=== PATIENT | male | born 1950 | race Caucasian/White ===

== ENCOUNTER 2016-10-31 15:20 | Outpatient (CLI) | payer OTHER, MEDICARE | END 2016-10-31 15:21 | disposition home or self-care (01) | DX: I10 Essential (primary) hypertension (principal) ==

== ENCOUNTER 2016-11-01 12:04 | Outpatient (CLI) | payer OTHER, MEDICARE | END 2016-11-01 23:59 | DX: I10 Essential (primary) hypertension (principal) ==

== ENCOUNTER 2016-12-17 14:28 | Emergency (ER) | payer OTHER, MEDICARE ==
[2016-12-17 14:34] VITALS: BP 142/89
--- NOTE | 2016-12-17 14:34 | ED Physician Documentation ---
PD HPI OPHTHO - Stated complaint Stated Complaint: L EYE SWELLING/PX - History obtained from History obtained from: Patient - History of Present Illness Timing - onset: Yesterday Timing - duration: Days (1 1/2 days) Timing - details: Abrupt onset Location: Left (eyebrow) Quality / character: Aching, Throbbing Associated symptoms: Redness (he had small pimple looking lesion left eyebrow yesterday that he pinched and got some purulent material out. It is tender and red. Today awoke to note redness of left upper eyelid, with swelling, still with some draining of the pustule, and local tenderness increased. No feeling of eye pressure, visual change, nor pain with eye movement. No fevers, no headache, no sinus pressure.), Swelling, Discharge. No: Double vision, Decreased vision, Loss of vision, Headache Contributing factors: No: FB Similar symptoms before: Has not had sx before Recently seen: Not recently seen Review of Systems Constitutional: denies: Fever, Chills Eyes: denies: Loss of vision, Decreased vision, Photophobia GI: denies: Nausea, Vomiting, Diarrhea Neurologic: denies: Headache PD PAST MEDICAL HISTORY - Past Medical History Cardiovascular: Hypertension Endocrine/Autoimmune: HyPOthyroidism - Past Surgical History General: Cholecystectomy Ortho: Knee replacement, Rotator cuff repair - Present Medications Home Medications: Ambulatory Orders Medication Instructions Recorded Confirmed Levothyroxine Sodium [Synthroid] 125 mcg ORAL DAILY 06/14/15 12/17/16 Metoprolol Tartrate 25 mg ORAL DAILY 06/14/15 12/17/16 Aspirin [Aspirin EC] 81 mg PO DAILY 12/17/16 12/17/16 Chlorhexidine Gluconate [Hibiclens] 10 ml TP DAILY #236 ml 12/17/16 Mupirocin 1 applic TP TID #15 oint...g. 12/17/16 Sulfamethox/Trimeth 800/160 1 each PO BID #14 tablet 12/17/16 [Bactrim Ds 800/160] - Allergies Allergies/Adverse Reactions: Allergies Allergy/AdvReac Type Severity Reaction Status Date / Time clindamycin Allergy Nausea Verified 12/17/16 14:34 erythromycin base AdvReac Unknown Verified 06/14/15 17:54 - Social History Does the pt smoke?: No Smoking Status: Never smoker Does the pt drink ETOH?: No Does the pt have substance abuse?: No - Immunizations Immunizations are current?: Yes PD ED PE NORMAL - Vitals Vital signs reviewed: Yes - General General: Alert and oriented X 3, No acute distress, Well developed/nourished - HEENT HEENT: PERRL, EOMI (no pain nor diplopia with eye movement. ) - Neck Neck: Supple, no meningeal sign, No adenopathy - Derm Derm: Warm and dry, Other (left eyebrow with focal induration, swelling and tenderness with weeping small pustule. No fluctuance and the lesion is less than a cm, so does not seem to need I&D. The upper eyelid and lateral periorbital area with redness and swelling of skin c/w cellulitis. 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 I think he should not be in that sterile environment with weeping lesion and told him this. He is understanding of concern and will contact his Anesth director for help with coverage. Appears likely staph infection and will treat as such. No signs of orbital involvement. ), d/w patient Departure - Departure Disposition: 01 Home, Self Care Clinical Impression: Abscess of eyebrow Cellulitis of eyelid Qualifiers: Laterality: left Qualified Code(s): H00.036 - Abscess of eyelid left eye, unspecified eyelid Condition: Stable Record reviewed to determine appropriate education?: Yes Instructions: ED Staph Infec Abx Tx Only Follow-Up: Edwin Anthony MD [Primary Care Provider] - Prescriptions: Sulfamethox/Trimeth 800/160 [Bactrim Ds 800/160] 1 each PO BID #14 tablet Chlorhexidine Gluconate [Hibiclens] 10 ml TP DAILY #236 ml Mupirocin 1 applic TP TID #15 oint...g. Comments: Warm moist compresses several times daily to the area to improve blood flow and promote drainage. Bactrim twice daily for infection. Mupirocin ointment 3-4 times daily to the area. Hibiclens body wash daily with showers for a week. Tylenol or Ibuprofen as needed for pains. Recheck if not improved over the next few days. Return if feeling of pressure behind/around the eye, pain with eye movement, persistent blurred vision, general headache, etc. Regarding work and concerns for infection control, you should probably not be in the OR with draining infection, likely staph. You should not be in the OR until this is better, not draining, cleared up. Whether you need to be cleared by Infection Control or not, hard to say. I would talk with director pharmacy services or your Anesth group tomorrow about it. Discharge Date/Time: 12/17/16 15:12
[2016-12-17] MEDS ORDERED: IBUPROFEN 600 MG TABLET PO STA (14:48)
[2016-12-17] MEDS ORDERED: SULFAMETH/TRIMETH DS 800/160 MG TABLET PO STA (14:48)
[2016-12-17] MEDS ORDERED: MUPIROCIN 2% OINT 1 GM TOP STA (14:48)
[2016-12-17] MEDS ORDERED: IBUPROFEN 600 MG TABLET PO ONE (14:51)
[2016-12-17] MEDS ORDERED: SULFAMETH/TRIMETH DS 800/160 MG TABLET PO ONE (14:53)
[2016-12-17] MEDS ORDERED: MUPIROCIN 2% OINT 1 GM ONE (14:54)
== END 2016-12-17 15:12 | disposition home or self-care (01) ==
LOC: ED 14:28
DX: L02.01 Cutaneous abscess of face (principal); H00.034 Abscess of left upper eyelid; I10 Essential (primary) hypertension; E03.9 Hypothyroidism, unspecified
CPT/HCPCS: 99283; A9270

== ENCOUNTER 2017-04-30 07:06 | Emergency (ER) | payer OTHER, MEDICARE ==
--- NOTE | 2017-04-30 08:37 | ED Physician Documentation ---
PD HPI Fall - Stated complaint Stated Complaint: LEG INJURY - Chief complaint Chief Complaint: Trauma Ext - History obtained from History obtained from: Patient, Family - History of Present Illness Mechanism of injury: Slipped Fall distance: Standing position Where injury occurred: Home Timing - onset: Today Injury(ies) location: Left Lower Extremity, Left Hand Quality of pain: Pain, Throbbing Associated symptoms: No: LOC, AMS, Amnesia Symptoms improve with: Rest Worsens with: Movement, Palpation Contributing factors: No: Anticoagulated Similar symptoms before: Has not had sx before Recently seen: Not recently seen - Additional information Additional information: 66-year-old male was on his way to work this morning when he walked out of his house slipped on his concrete porch and fell he had what he terms dislocation of his left knee and a bruise to the left lateral distal thigh. He injured his left thumb as well in the fall. He has significant pain over the area of the hematoma and the distal neurovascular appears intact. Review of Systems Constitutional: denies: Fever Eyes: denies: Decreased vision Ears: denies: Ear pain Nose: denies: Congestion Respiratory: denies: Cough GI: denies: Abdominal Pain, Nausea, Vomiting, Constipation, Diarrhea : denies: Dysuria Skin: denies: Rash Musculoskeletal: reports: Extremity pain, Joint pain, Extremity swelling, Joint swelling, Pain with weight bearing. denies: Neck pain, Back pain PD PAST MEDICAL HISTORY - Past Medical History Cardiovascular: Hypertension Endocrine/Autoimmune: HyPOthyroidism - Past Surgical History General: Cholecystectomy Ortho: Knee replacement, Rotator cuff repair - Present Medications Home Medications: Ambulatory Orders Medication Instructions Recorded Confirmed Levothyroxine Sodium [Synthroid] 125 mcg ORAL DAILY 06/14/15 04/30/17 Aspirin [Aspirin EC] 81 mg PO DAILY 12/17/16 04/30/17 HYDROcod/ACETAM 5/325 [[place] 5/325] 1 - 2 ea PO Q6H PRN #15 tablet 04/30/17 Metoprolol Succinate [Metoprolol 50 mg PO DAILY 04/30/17 04/30/17 Succinate] - Allergies Allergies/Adverse Reactions: Allergies Allergy/AdvReac Type Severity Reaction Status Date / Time clindamycin Allergy Nausea Verified 12/17/16 14:34 erythromycin base AdvReac Unknown Verified 06/14/15 17:54 - Social History Does the pt smoke?: No Smoking Status: Never smoker Does the pt drink ETOH?: No Does the pt have substance abuse?: No - Immunizations Immunizations are current?: Yes PD ED PE NORMAL - Vitals Vital signs reviewed: Yes (hypertensive ) - General General: No acute distress, Well developed/nourished - HEENT HEENT: Atraumatic - Neck Neck: Supple, no meningeal sign - Respiratory Respiratory: No respiratory distress - Derm Derm: Normal color, Warm and dry, No rash - Extremities Extremities: No deformity, Other (There is a hematoma to the left distal thigh laterally and the area is area of maximal tenderness. There is tenderness along the lateral joint line and not the medial joint line. The medial joint opens to forces and the lateral joint does not. There is not pain associated with the joint opening. The anterior drawer is negative with a good strong endpoint to the ACL. There does not appear to be much joint effusion and the petella is without tenderness. There is tenderness over the DIP of the left thumb with distal n/v intact. ) - Neuro Neuro: No motor deficit, No sensory deficit, Normal speech - Psych Psych: Normal mood, Normal affect Results - Vitals Vitals: Vital Signs - 24 hr 04/30/17 04/30/17 07:27 09:40 Temperature 36.5 C Heart Rate 78 71 Respiratory 16 16 Rate Blood Pressure 152/87 H 144/82 H O2 Saturation 97 96 Oxygen O2 Source Room air - Rads (name of study) lft fingers Radiology: Prelim report reviewed (Impression: cortical irregularity involving the base of the fifth distal phalanx that may represent fracture or degenerative changes. Degenerative changes at the first carpometacarpal joint. Cortical irregularity involving the first metacarpal most likely represents postoperative changes.), EMP read indepedently, See rad report left knee Radiology: Prelim report reviewed (Impression mild osteoarthritis of the left knee without definite evidence of acute fracture or dislocation. If symptoms persist, a MRI may be beneficial.), EMP read indepedently, See rad report Procedures - Splint (location) knee Splint applied by: Tech Type of splint: Other (knee immobilizer) Other: Patient tolerated well, No complications, Neurovascular intact, Good alignment, Crutches provided Left thumb Splint applied by: Tech Type of splint: Fiberglass, Thumb spica Other: Patient tolerated well, No complications, Neurovascular intact, Good alignment PD MEDICAL DECISION MAKING - ED course Complexity details: reviewed results, re-evaluated patient, considered differential, d/w patient, d/w family ED course: 66 y/o male with a fall and sprain of the MCL on the left with a bruise to the lateral thigh. There is potential fracture of the thumb as well. He is placed into a thumb spica and a knee immobilizer. Departure - Departure Disposition: 01 Home, Self Care Clinical Impression: Sprain of MCL joint of knee Qualifiers: Encounter type: initial encounter Laterality: left Qualified Code(s): S83.412A - Sprain of medial collateral ligament of left knee, initial encounter Left thumb sprain Qualifiers: Encounter type: initial encounter Sprain of finger site: interphalangeal joint Qualified Code(s): S63.622A - Sprain of interphalangeal joint of left thumb, initial encounter Condition: Stable Instructions: ED Sprain Knee Collateral Ligaments, ED Dislocation Thumb Follow-Up: Edwin Anthony MD [Primary Care Provider] - Xiao Mann MD [Provider Admit Priv/Credential] - Prescriptions: HYDROcod/ACETAM 5/325 [[place] 5/325] 1 - 2 ea PO Q6H PRN #15 tablet PRN Reason: Pain Discharge Date/Time: 04/30/17 09:41
--- NOTE | 2017-04-30 08:45 | XRAY Preliminary Report ---
Exam: XR Knee 4 View LT Impression: Mild osteoarthritis of the left knee without definite evidence of an acute fracture or di slocation. If symptoms persist, a MRI may be beneficial. [facility] SITE ID: [id number]
--- NOTE | 2017-04-30 08:48 | XRAY Report ---
EXAM: LEFT KNEE RADIOGRAPHY EXAM DATE: 04/30/2017 08:16 AM. CLINICAL HISTORY: Dislocation lateral joint pain. . COMPARISON: None. TECHNIQUE: 4 views. FINDINGS: Osteophytes are noted within all 3 compartments of the knee consistent with mild osteoarthritis. Mild joint space narrowing of the medial compartment is noted. There is no evidence of any acute fracture or dislocation. Impression: Mild osteoarthritis of the left knee without definite evidence of an acute fracture or di slocation. If symptoms persist, a MRI may be beneficial. [facility] Referring Provider Line: [phone] SITE ID: [id number]
--- NOTE | 2017-04-30 08:50 | XRAY Preliminary Report ---
Exam: XR Finger(s) LT Impression: Cortical irregularity involving the base of the first distal phalanx that may represent a fracture or degenerative changes. Degenerative changes at the first carpometacarpal joint. Cortical irregularity involving the first metacarpal most likely represents postoperative changes. [facility] SITE ID: [id number]
--- NOTE | 2017-04-30 08:52 | XRAY Report ---
EXAM: LEFT FIRST DIGIT RADIOGRAPHY EXAM DATE: 04/30/2017 08:17 AM. CLINICAL HISTORY: Fall dip 1 pain . COMPARISON: None. TECHNIQUE: 3 views. FINDINGS: There is extensive cortical irregularity involving the proximal aspect of the distal phalanx. This ma y represent degenerative changes or a mildly displaced fracture. Cortical irregularity is noted invol ving the first metacarpal. This may represent degenerative changes or previous postoperative changes. Degenerative changes are noted at the first carpometacarpal joint. No radiopaque foreign body is chai ntified. Impression: Cortical irregularity involving the base of the first distal phalanx that may represent a fracture or degenerative changes. Degenerative changes at the first carpometacarpal joint. Cortical irregularity involving the first metacarpal most likely represents postoperative changes. [facility] Referring Provider Line: [phone] SITE ID: [id number]
[2017-04-30] MEDS ORDERED: KETOROLAC 60 MG/2 ML VIAL IM STA (09:26)
[2017-04-30] MEDS ORDERED: KETOROLAC 60 MG/2 ML VIAL ONE (09:38)
[2017-04-30 09:41] VITALS: BP 144/82
== END 2017-04-30 09:41 | disposition home or self-care (01) ==
LOC: ED 07:06
DX: S83.412A Sprain of medial collateral ligament of left knee, initial encounter (principal); S63.622A Sprain of interphalangeal joint of left thumb, initial encounter; S70.12XA Contusion of left thigh, initial encounter; W01.0XXA Fall on same level from slipping, tripping and stumbling without subsequent striking against object, initial encounter; I10 Essential (primary) hypertension; E03.9 Hypothyroidism, unspecified; Z79.82 Long term (current) use of aspirin; Z96.659 Presence of unspecified artificial knee joint
CPT/HCPCS: 29125; 29530; 73140; 96372; 99283

== ENCOUNTER 2017-05-18 08:45 | Outpatient (CLI) | payer OTHER, MEDICARE ==
--- NOTE | 2017-05-18 22:07 | MRI Report ---
EXAM: LEFT KNEE MRI WITHOUT CONTRAST EXAM DATE: 05/18/2017 10:02 AM. CLINICAL HISTORY: Pain, instability. Injury 2 weeks ago. COMPARISON: Radiographs 04/30/2017. TECHNIQUE: Multiplanar, multisequence T1-weighted and fluid-sensitive sequences of the knee without c ontrast. Other: None. FINDINGS: Cruciate Ligaments: The posterior cruciate ligament appears normal. There is some abnormal signal mor phology within the anterior cruciate ligament adjacent to the tibial attachment which may represent a partial tear. Remaining fibers appear intact. Correlate with exam. Medial Meniscus: Near full-thickness radial tear at the inner half of the posterior horn. Intrasubsta nce degeneration within the posterior body. Lateral Meniscus: Small amount of intrasubstance degeneration. Collateral ligaments: The medial and fibular collateral ligaments appear intact. Bones and Articular Surfaces: Mild cartilage thinning throughout the weightbearing medial compartment . No focal articular cartilage defects. Marrow signal appears within normal limits. Extensor Mechanism: The patellar tendon and quadriceps insertion appear intact. Some enthesophyte for mation at the quadriceps insertion. IMPRESSION: 1. Near full-thickness radial tear at the posterior horn medial meniscus. 2. Mild degenerative cartilage thinning in the weightbearing medial compartment. 3. Possible partial tear involving the lower fibers of the anterior cruciate ligament near the tibial attachment. Correlate with exam. [facility] MUSCULOSKELETAL RADIOLOGY SECTION Referring Provider Line: [phone] SITE ID: [id number]
== END 2017-05-18 08:46 | disposition home or self-care (01) ==
LOC: DI 08:45
PROVIDERS: ATTEND Orthopaedic Surgery
DX: S83.242A Other tear of medial meniscus, current injury, left knee, initial encounter (principal); M23.92 Unspecified internal derangement of left knee

== ENCOUNTER 2017-11-07 16:33 | Outpatient (CLI) | payer OTHER, MEDICARE ==
--- NOTE | 2017-11-08 10:49 | MRI Report ---
EXAM: LEFT KNEE MRI WITHOUT CONTRAST EXAM DATE: 11/07/2017 06:04 PM. CLINICAL HISTORY: Sprain of anterior cruciate ligament of left knee. COMPARISON: MRI 05/18/2017. TECHNIQUE: Multiplanar, multisequence T1-weighted and fluid-sensitive sequences of the knee without c ontrast. Other: None. FINDINGS: Bones: Postsurgical changes of anterior cruciate ligament reconstruction. Mild prominence of the femo ral and tibial tunnels measuring up to 1.3 cm and 1.7 cm respectively. Fluid sensitive hyperintense s ignal surrounds the graft within the tunnels. Moderate edema adjacent to the tibial tunnel. No fracture or bone lesion.. Articular Cartilage: Shallow partial-thickness cartilage loss central aspect medial compartment. Shal low partial-thickness loss and irregularity lateral patellar facet. These are similar. Medial Meniscus: Diffusely diminutive appearance at the junction of the posterior horn and root, power lar. Mild subluxation of the body into the medial gutter. Lateral Meniscus: Intrasubstance degeneration anterior horn and body. No discrete tear. Cruciate Ligaments: Diffuse distortion at the mid substance anterior cruciate ligament graft. Some to rn fibers extend into the anterior intracondylar notch. Some fibers medially appear intact. Posterior cruciate ligament is mildly thickened although intact. Collateral Ligaments: The medial collateral and lateral collateral ligamentous structures are intact. Tendons: Mild quadriceps and patellar tendinopathy. Popliteus and semimembranosus tendons are unremar kable. Musculature: No fatty atrophy. Minimal edema in the vastus lateralis muscle. Other: Small joint effusion with synovitis. Minimal popliteal cyst. No loose bodies. The medial and lateral retinacula are intact. Mild to moderate subcutaneous edema anteriorly. Mild reactive edema in the fat pads. IMPRESSION: 1. Grade 2 sprain and partial-thickness tearing anterior cruciate ligament graft. 2. Prominence of the femoral and tibial tunnels with fluid sensitive hyperintense signal adjacent to the graft in the tunnels and bone marrow edema at the tibial tunnel, concerning for underlying graft loosening. 3. Mild thickening posterior cruciate ligament. 4. Near full-thickness radial tear at the junction of the posterior horn and root medial meniscus, si milar. 5. Intrasubstance degeneration lateral meniscus. 6. Small joint effusion with synovitis. 7. Mild quadriceps and patellar tendinopathy. [facility] MUSCULOSKELETAL RADIOLOGY SECTION Referring Provider Line: [phone] SITE ID: [id number]
== END 2017-11-07 16:34 | disposition home or self-care (01) ==
LOC: DI 16:33
PROVIDERS: ATTEND Orthopaedic Surgery
DX: S83.512D Sprain of anterior cruciate ligament of left knee, subsequent encounter (principal); S83.242A Other tear of medial meniscus, current injury, left knee, initial encounter; M23.301 Other meniscus derangements, unspecified lateral meniscus, left knee; M25.462 Effusion, left knee; M65.862 Other synovitis and tenosynovitis, left lower leg; M67.864 Other specified disorders of tendon, left knee

== ENCOUNTER 2018-02-19 09:10 | Emergency (ER) | payer OTHER, MEDICARE ==
--- NOTE | 2018-02-19 10:12 | ED Physician Documentation ---
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 at [facility] hx DVT with prior right knee surgery on asa no coumadin xarelto or lovenox LLE swollen painful no CP palp soa hemoptysis Review of Systems Constitutional: denies: Fever, Chills Cardiac: denies: Chest pain / pressure, Palpitations Respiratory: denies: Dyspnea, Cough, Hemoptysis Musculoskeletal: reports: Extremity pain, Extremity swelling PD PAST MEDICAL HISTORY - Past Medical History Past Medical History: Yes Cardiovascular: Hypertension Endocrine/Autoimmune: HyPOthyroidism - Past Surgical History General: Cholecystectomy Ortho: Knee replacement, Rotator cuff repair - Present Medications Home Medications: Ambulatory Orders Medication Instructions Recorded Confirmed Levothyroxine Sodium [Synthroid] 125 mcg ORAL DAILY 06/14/15 04/30/17 Aspirin [Aspirin EC] 81 mg PO DAILY 12/17/16 04/30/17 HYDROcod/ACETAM 5/325 [[place] 5/325] 1 - 2 ea PO Q6H PRN #15 tablet 04/30/17 Metoprolol Succinate [Metoprolol 50 mg PO DAILY 04/30/17 04/30/17 Succinate] - Allergies Allergies/Adverse Reactions: Allergies Allergy/AdvReac Type Severity Reaction Status Date / Time clindamycin Allergy Nausea Verified 12/17/16 14:34 erythromycin base AdvReac Unknown Verified 06/14/15 17:54 - Social History Does the pt smoke?: No Smoking Status: Never smoker Does the pt drink ETOH?: No Does the pt have substance abuse?: No - Immunizations Immunizations are current?: Yes - POLST Patient has POLST: No PD ED PE NORMAL - Vitals Vital signs reviewed: Yes - General General: Alert and oriented X 3 - Cardiac Cardiac: RRR - Respiratory Respiratory: No respiratory distress, Clear bilaterally - Extremities Extremities: Other (edema and calf TTP LLE, no erythema, few petecchia to ant pretib region, MSV intact) Results - Vitals Vitals: Vital Signs - 24 hr 02/19/18 02/19/18 09:28 13:04 Temperature 36.3 C L Heart Rate 75 64 Respiratory 18 16 Rate Blood Pressure 156/98 H 143/87 H O2 Saturation 97 100 Oxygen O2 Source Room air - Labs Labs: Laboratory Tests 02/19/18 02/19/18 10:20 10:20 WBC 6.4 RBC 4.81 Hgb 14.8 Hct 42.4 MCV 88.1 MCH 30.7 MCHC 34.8 RDW 13.6 Plt Count 125 L MPV 9.3 Neut # (Auto) 3.3 Lymph # (Auto) 2.1 [place] # (Auto) 0.7 Eos # (Auto) 0.2 Baso # (Auto) 0.0 Absolute Nucleated RBC 0.00 Nucleated RBC % 0.0 Creatinine 0.9 Estimated GFR (MDRD) 84 L - Rads (name of study) duplex Radiology: See rad report (normal - no DVT) PD MEDICAL DECISION MAKING - ED course ED course: MSE performed primary concern post op swelling would be infection (exam does not suggest) and DVT (sono neg) will reassure and dc if sx persist rec rpt duplex in few days no life limb threatening issue requiring admit surgery etc identified and feel pt stable and safe to dc home - Sepsis Event Vital Signs: Vital Signs - 24 hr 02/19/18 02/19/18 09:28 13:04 Temperature 36.3 C L Heart Rate 75 64 Respiratory 18 16 Rate Blood Pressure 156/98 H 143/87 H O2 Saturation 97 100 Oxygen O2 Source Room air Departure - Departure Disposition: 01 Home, Self Care Clinical Impression: Postoperative edema Condition: Good Follow-Up: Edwin Anthony MD [Primary Care Provider] - Vincent Rodney DO [Physician No Access] - Comments: Thankfully the ultrasound did not show a blood clot Recommend compression stockings and elevation to decrease the swelling If symptoms worsen or persist would recommend a repeat duplex in about 5 days - small blood clots can occasionally be missed on initial ultrasound Discharge Date/Time: 02/19/18 13:07
[2018-02-19 10:27] LABS: BASOPHILS % (AUTO) 0.6 %; EOSINOPHILS # (AUTO) 0.2 10^3/uL (0.0-0.7); EOSINOPHILS % (AUTO) 3.6 %; HGB - HEMOGLOBIN 14.8 g/dL (14.0-18.0); LYMPHOCYTES # (AUTO) 2.1 10^3/uL (1.5-3.5); LYMPHOCYTES % (AUTO) 33.5 %; MEAN CORPUSCULAR HEMOGLOBIN 30.7 pg (27.0-31.0); MEAN CORPUSCULAR HGB CONC 34.8 g/dL (32.0-36.0); MEAN CORPUSCULAR VOLUME 88.1 fL (80.0-94.0); MEAN PLATELET VOLUME 9.3 fL (7.4-11.4); MONOCYTES # (AUTO) 0.7 10^3/uL (0.0-1.0); NEUTROPHILS # (AUTO) 3.3 10^3/uL (1.5-6.6); NEUTROPHILS % (AUTO) 51.3 %; PLT - PLATELET COUNT 125 10^3/uL (130-450); RED BLOOD COUNT 4.81 10^6/uL (4.70-6.10); RED CELL DISTRIBUTION WIDTH 13.6 % (12.0-15.0); WHITE BLOOD COUNT 6.4 x10^3/uL (4.8-10.8)
[2018-02-19 10:35] LABS: CREATININE 0.9 mg/dL (0.6-1.2)
--- NOTE | 2018-02-19 12:05 | Ultrasound Report ---
Procedure Date: 02/19/2018 Accession Number: [id number] / [id number] Procedure: US - Duplex Ext Veins Left CPT Code: FULL RESULT: EXAM: Duplex Ext Veins Left DATE: 02/19/2018 11:42 AM CLINICAL HISTORY: s/p left knee on , new swelling and pain, COMPARISON: None. TECHNIQUE: Real-time sonographic vascular imaging was performed by the paint roller covers supervisor through the lower extremities utilizing both color-flow and Doppler spectral analysis. Multiple sales promotion representative static images were saved for review. FINDINGS: Left: Common Femoral Vein (CFV): Normal. [Profunda Femoral Vein (PFV): Normal. Superficial Femoral Vein (SFV) Prox: Normal. Superficial Femoral Vein (SFV) Mid: Normal. Superficial Femoral Vein: (SFV) Dist: Normal. Popliteal Vein: Normal. Posterior Tibial Veins: Normal. Peroneal Veins: Normal. Other: None. IMPRESSION: Normal. No evidence for deep venous thrombosis. [facility]
[2018-02-19 13:04] VITALS: BP 143/87
== END 2018-02-19 13:07 | disposition home or self-care (01) ==
LOC: ED 09:10
DX: T81.89XA Other complications of procedures, not elsewhere classified, initial encounter (principal); R60.1 Generalized edema; I10 Essential (primary) hypertension; E78.00 Pure hypercholesterolemia, unspecified; Z96.659 Presence of unspecified artificial knee joint; Z79.82 Long term (current) use of aspirin
CPT/HCPCS: 36415; 82565; 85025; 99283

== ENCOUNTER 2018-05-07 12:05 | Emergency (ER) | payer OTHER, MEDICARE ==
[2018-05-07 12:15] VITALS: BP 154/78
--- NOTE | 2018-05-07 12:43 | ED Physician Documentation ---
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 and bent his thumb backwards pain to MCP and prox phalange no numbness or weakness took aleve already needs an xray Review of Systems Musculoskeletal: reports: Extremity pain PD PAST MEDICAL HISTORY - Past Medical History Cardiovascular: Hypertension Endocrine/Autoimmune: HyPOthyroidism - Past Surgical History General: Cholecystectomy Ortho: Knee replacement, Rotator cuff repair - Present Medications Home Medications: Ambulatory Orders Medication Instructions Recorded Confirmed Levothyroxine Sodium [Synthroid] 125 mcg ORAL DAILY 06/14/15 04/30/17 Aspirin [Aspirin EC] 81 mg PO DAILY 12/17/16 04/30/17 Metoprolol Succinate 50 mg PO DAILY 04/30/17 04/30/17 - Allergies Allergies/Adverse Reactions: Allergies Allergy/AdvReac Type Severity Reaction Status Date / Time clindamycin Allergy Nausea Verified 05/07/18 12:10 erythromycin base AdvReac Unknown Verified 05/07/18 12:10 - Social History Does the pt smoke?: No Smoking Status: Never smoker Does the pt drink ETOH?: No Does the pt have substance abuse?: No - Immunizations Immunizations are current?: Yes - POLST Patient has POLST: No PD ED PE NORMAL - Vitals Vital signs reviewed: Yes - Extremities Extremities: Other (R thumb some swelling to MCP (pt states has arthritis) TTP MCP and prox phalangem full strength ABD ADD flex ext, pain with finkestein, nl pinch, MSV intact) Results - Vitals Vitals: Vital Signs - 24 hr 05/07/18 12:08 Temperature 35.6 C L Heart Rate 68 Respiratory 16 Rate Blood Pressure 154/78 H O2 Saturation 96 Oxygen O2 Source Room air - Rads (name of study) thumb Radiology: See rad report (MCP sublux ? traumatic or degen no fx) PD MEDICAL DECISION MAKING - ED course ED course: d/w ortho - splint and will see in office tomorrow - Sepsis Event Vital Signs: Vital Signs - 24 hr 05/07/18 12:08 Temperature 35.6 C L Heart Rate 68 Respiratory 16 Rate Blood Pressure 154/78 H O2 Saturation 96 Oxygen O2 Source Room air Departure - Departure Disposition: 01 Home, Self Care Clinical Impression: Subluxation of right thumb Qualifiers: Encounter type: initial encounter Qualified Code(s): S63.101A - Unspecified subluxation of right thumb, initial encounter Condition: Good Follow-Up: Xiao Mann MD [Provider Admit Priv/Credential] - Comments: Wear the splint as much as possible Follow up with orthopedics tomorrow - you just need to call to schedule
--- NOTE | 2018-05-07 13:04 | XRAY Report ---
Reason: trauma Procedure Date: 05/07/2018 Accession Number: [id number] / [id number] Procedure: XR - Finger(s) RT CPT Code: FULL RESULT: EXAM: RIGHT/LEFT 1ST/2ND/3RD/4TH/5TH DIGIT RADIOGRAPHY EXAM DATE: 05/07/2018 12:24 PM. CLINICAL HISTORY: Trauma. COMPARISON: FINGER(S) LT 04/30/2017 7:51 AM. TECHNIQUE: 3 views. FINDINGS: No acute fracture is identified. There is partial subluxation of the proximal interphalangeal joint with associated degenerative changes. Degenerative changes to a lesser degree are also seen at the first carpometacarpal articulation. IMPRESSION: Subluxed proximal interphalangeal joint of the first ray. RADIA
== END 2018-05-07 13:52 | disposition home or self-care (01) ==
LOC: ED 12:05
DX: S63.101A Unspecified subluxation of right thumb, initial encounter (principal); X50.1XXA Overexertion from prolonged static or awkward postures, initial encounter; I10 Essential (primary) hypertension; E03.9 Hypothyroidism, unspecified; Z96.659 Presence of unspecified artificial knee joint; Z79.82 Long term (current) use of aspirin
CPT/HCPCS: 73140; 99282

== ENCOUNTER 2019-01-15 07:15 | Outpatient (CLI) | payer OTHER, MEDICARE ==
[2019-01-15 07:54] LABS: ALBUMIN 3.9 g/dL (3.2-5.5); ALBUMIN/GLOBULIN RATIO 1.2 (1.0-2.2); ALKALINE PHOSPHATASE 69 IU/L (42-121); ALT ALANINE AMINOTRANSFERASE 32 IU/L (10-60); AST ASPARTATE AMINOTRANSFERASE 31 IU/L (10-42); BILIRUBIN,TOTAL 1.1 mg/dL (0.2-1.0); BUN - BLOOD UREA NITROGEN 26 mg/dL (6-20); CALCIUM 8.7 mg/dL (8.5-10.3); CARBON DIOXIDE - CO2 26 mmol/L (21-32); CHLORIDE 106 mmol/L (101-111); CHOL/HDL RATIO 5.5 (<5.0); CHOLESTEROL 143 mg/dL; CREATININE 0.8 mg/dL (0.6-1.2); GFR - MDRD 96 (>89); GLUCOSE 105 mg/dL (70-100); HDL CHOLESTEROL 26 mg/dL; LDL CHOLESTEROL,CALCULATED 50 mg/dL; LDL/HDL RATIO 1.9 (<3.6); SODIUM 142 mmol/L (135-145); TOTAL PROTEIN 7.2 g/dL (6.7-8.2); VLDL CHOLESTEROL 67 mg/dL
[2019-01-15 08:27] LABS: THYROID STIMULATING HORMONE 3.41 uIU/mL (0.34-5.60)
[2019-01-15 08:29] LABS: FREE T4 (FREE THYROXINE) 1.03 ng/dL (0.58-1.64)
[2019-01-15 08:53] LABS: BASOPHILS # (AUTO) 0.1 10^3/uL (0.0-0.1); BASOPHILS % (AUTO) 1.1 %; EOSINOPHILS # (AUTO) 0.2 10^3/uL (0.0-0.7); EOSINOPHILS % (AUTO) 3.2 %; HGB - HEMOGLOBIN 15.1 g/dL (14.0-18.0); LYMPHOCYTES # (AUTO) 2.5 10^3/uL (1.5-3.5); LYMPHOCYTES % (AUTO) 39.2 %; MEAN CORPUSCULAR HGB CONC 34.1 g/dL (32.0-36.0); MEAN CORPUSCULAR VOLUME 88.1 fL (80.0-94.0); MEAN PLATELET VOLUME 10.3 fL (7.4-11.4); MONOCYTES # (AUTO) 0.6 10^3/uL (0.0-1.0); MONOCYTES % (AUTO) 9.6 %; NEUTROPHILS % (AUTO) 46.9 %; PLT - PLATELET COUNT 115 10^3/uL (130-450); RED BLOOD COUNT 5.02 10^6/uL (4.70-6.10); RED CELL DISTRIBUTION WIDTH 13.2 % (12.0-15.0); WHITE BLOOD COUNT 6.3 x10^3/uL (4.8-10.8)
== END 2019-01-15 07:16 | disposition home or self-care (01) ==
LOC: LAB 07:15
PROVIDERS: ATTEND Family Medicine
DX: I10 Essential (primary) hypertension (principal); E03.9 Hypothyroidism, unspecified
CPT/HCPCS: 36415; 80053; 80061; 83721; 84439; 84443; 84481; 85025

== ENCOUNTER 2019-02-05 17:49 | Outpatient (CLI) | payer OTHER, MEDICARE ==
--- NOTE | 2019-02-05 21:05 | Ultrasound Report ---
Reason: R NECK MASS, PAINFUL Procedure Date: 02/05/2019 Accession Number: [id number] / [id number] Procedure: US - Head or Neck Soft Tissue CPT Code: FULL RESULT: EXAM: NECK ULTRASOUND EXAM DATE: 02/05/2019 06:19 PM. CLINICAL HISTORY: R NECK MASS, PAINFUL, decreasing in size. COMPARISON: None. TECHNIQUE: Real-time sonographic imaging was performed by the registered diet technician utilizing color-flow. Multiple patient account representative static images were saved for review. FINDINGS: Palpated abnormality corresponds to a noncompressible, nonvascular, complex but generally hypoechoic nodule measuring 0.7 x 0.4 x 0.5 cm, closely associated with the right sternoclavicular joint. Otherwise unremarkable. No similar nodule on the left. IMPRESSION: Small nonspecific nodule; differential considerations include benign and malignant possibilities. History of decreasing size is encouraging and suggests reactive lymph node. RADIA
== END 2019-02-05 17:50 | disposition home or self-care (01) ==
LOC: DI 17:49
PROVIDERS: ATTEND Surgery
DX: R22.1 Localized swelling, mass and lump, neck (principal); M54.2 Cervicalgia
CPT/HCPCS: 76536

== ENCOUNTER 2019-05-02 14:56 | Outpatient (CLI) | payer OTHER, MEDICARE ==
[~2019-05-02 14:56] MED LIST: SUCCINYLCHOLINE 200 MG/10 ML VIAL ONE
--- NOTE | 2019-05-03 11:18 | MRI Report ---
Reason: PAINFUL RT ACHILLES TENDON Procedure Date: 05/02/2019 Accession Number: [id number] / [id number] Procedure: MRI - Ankle RT W/O CPT Code: FULL RESULT: EXAM: RIGHT ANKLE/HINDFOOT MRI WITHOUT CONTRAST EXAM DATE: 05/02/2019 04:10 PM. CLINICAL HISTORY: Right posterior ankle pain. ? Achilles tendon. COMPARISON: CALCANEUS RT 02/26/2019 9:15 AM. TECHNIQUE: Multiplanar, multisequence T1-weighted and fluid-sensitive sequences of the ankle/hindfoot without contrast. Other: None. FINDINGS: Bones: There is subchondral cyst formation and osteophyte formation at the tibiotalar articulation. There is moderate erosion of the hyaline cartilage. Edema and subchondral cyst formation is also visible in the medial and lateral malleoli. There is mild erosion and subchondral cyst formation in the posterior subtalar joint. There are small calcaneal cuboid osteophytes. Subchondral cysts are seen in the tarsometatarsal joints. Articular Cartilage: Findings consistent with moderate osteoarthritis of the midfoot, and hindfoot. Moderate to severe osteoarthritis of the ankle. Ligaments: There is thickening and scarring of both anterior and posterior tibiofibular ligaments with hypertrophy of the bony attachments consistent with prior partial-thickness tears. The anterior talofibular ligament is absent, consistent with a grade 3 tear. The calcaneofibular and posterior talofibular ligaments appear thickened and scarred. The medial collateral ligaments appear thinned, suggestive of a prior high-grade partial-thickness tear. Anterior Tendons: The tibialis anterior, extensor hallucis longus, and extensor digitorum longus tendons are unremarkable. Medial Tendons: The tibialis posterior, flexor digitorum longus, and flexor hallucis longus tendons are unremarkable. Lateral Tendons: There is partial-thickness tear of the peroneus brevis posterior to the lateral malleolus. Peroneus longus appears intact. Achilles Tendon: The insertion of the Achilles tendon appears thickened, measuring up to 12 mm in maximum diameter. There is fluid signal in the anterior fibers of the insertion consistent with a high-grade partial-thickness tear. The tear measures approximately 9 x 11 mm. Musculature: No edema or fatty atrophy. Other: There is a small ankle and subtalar joint effusion. The contents of the sinus tarsi and tarsal tunnel are unremarkable. No plantar fasciitis. The subcutaneous tissues are unremarkable. IMPRESSION: 1. Tendinosis and partial-thickness tear of the distal Achilles tendon. 2. Moderate to severe osteoarthritis of the ankle. Moderate osteoarthritis of the midfoot and subtalar joints. 3. Findings consistent with prior trauma to the tibiofibular ligaments, medial and lateral collateral ligaments. 4. Partial-thickness tear of peroneus brevis. RADIA
== END 2019-05-02 14:57 | disposition home or self-care (01) ==
LOC: DI 14:56
PROVIDERS: ATTEND Podiatrist
DX: S86.011A Strain of right Achilles tendon, initial encounter (principal); M19.071 Primary osteoarthritis, right ankle and foot; S96.811A Strain of other specified muscles and tendons at ankle and foot level, right foot, initial encounter
CPT/HCPCS: 73721; J0330